=== PATIENT | female | born 1970 | race African-American/Black ===

== ENCOUNTER 2023-05-20 12:37 | Emergency (ER) | payer BC, OTHER ==
[~2023-05-20] VITALS: Ht 172.7 cm; Wt 106.8 kg
[2023-05-20] MEDS ORDERED: ATEN-187 PO (12:47)
[2023-05-20] MEDS ORDERED: AMLO5TAB66 PO (12:47)
[2023-05-20] MEDS ORDERED: LOSA-381 PO (12:47)
[2023-05-20 15:14] VITALS: BP 154/114; PULSE 67; RESP 18; TEMP 98.1
[2023-05-20] MEDS ORDERED: METH-659 PO (16:05)
[2023-05-20] MEDS ORDERED: IBUP-1492 PO (16:05)
[2023-05-20] MEDS: KETOROLAC TROMETHAMINE 30 MG/ML VIAL IM ONE (16:30)
== END 2023-05-20 17:19 | disposition home or self-care (01) ==
LOC: EMS 12:42
DX: D17.9 Benign lipomatous neoplasm, unspecified (principal); M54.50 Low back pain, unspecified
CPT/HCPCS: 99283; 96372; J1885